=== PATIENT | female | born 1985 ===

== ENCOUNTER 2020-02-10 15:29 | Emergency (ER) | payer OTHER ==
[~2020-02-10] VITALS: Ht 167.6 cm; Wt 63.6 kg
[2020-02-10 15:34] VITALS: BP 135/72
--- NOTE | 2020-02-10 15:37 | NUR ---
pt screaming in triage and when asked to stop screaming she ripped her bp cuff off [email or web address] threw it at me and stormed out of triage. security arrived.
== END 2020-02-10 15:46 | disposition left against medical advice (07) ==
LOC: ER 15:31
DX: S02.5XXA Fracture of tooth (traumatic), initial encounter for closed fracture (principal); Z53.21 Procedure and treatment not carried out due to patient leaving prior to being seen by health care provider; X58.XXXA Exposure to other specified factors, initial encounter; Y93.89 Activity, other specified; Y92.89 Other specified places as the place of occurrence of the external cause; Y99.8 Other external cause status